=== PATIENT | female | born 1935 | race Caucasian/White ===

== ENCOUNTER 2018-05-11 09:59 | Inpatient (IN) | payer OTHER ==
[~2018-05-11] VITALS: Ht 172.7 cm; Wt 59.0 kg
[~2018-05-11 09:59] MED LIST: ACCU CHECK; ADULT LOW DOSE81 MG PO; ASPIR 8181 MG PO; ASPIRIN EC81 M1 PO; ATIVAN1 MG PO; CEFUROXIME250 MG PO; DEPAKOTE 250MG250 M1 PO; ENSURE CLINICA PO; EXELON1 EAC1 TOP; GEODON IM; GEODON20 MG PO; GLUCOPHAGE XR500 MG PO; GLUCOPHAGE500 MG PO; HUMALOG100 UNIT/1 SQ; HYDRALAZINE 2525 M1 PO; LISINOPRIL10 MG PO; LISINOPRIL5 MG PO; LORAZEPAM 2MG2 MG/M1 IM; MECLIZINE HCL12.5 MG PO; METOPROLOL SUCC25 M1 PO; MOM PO; NAMENDA 5 MG TAB5 M1 PO; NITROSTAT0.4 M1 SL; NOHOMEMEDICATIONS; NUEDEXTA 20-101 EACH PO; OLANZAPINE ODT5 MG PO; OLANZAPINE2.5 MG PO; OLANZAPINE5 MG PO; PAIN & FEVER325 MG PO; REMERON15 M2 PO; Rivastigmine TRANSDERM; SENNA8.6 MG PO; SEROQUEL 12.512.5 MG PO; TYLENOL325 MG PO; ZESTRIL2.5 MG PO; Ziprasidone IM
[2018-05-11 10:04] VITALS: BP 105/85
[2018-05-11 10:26] LABS: ABSOLUTE NEUTROPHILS 11.3 thou/uL (1.4-8.2); BASOPHILS 0.4 % (0.0-2.0); EOSINOPHILS 0.1 % (0.0-3.0); HEMATOCRIT 50.7 % (37.0-47.0); HEMOGLOBIN 16.6 gm/dL (12.0-15.0); LYMPHOCYTES 15.6 % (24.0-44.0); MCH 31.6 pg (26.0-34.0); MCHC 32.7 g/dL (28.0-37.0); MCV 96.8 fL (80.0-100.0); MONOCYTES 5.9 % (1.0-8.0); PLATELET COUNT 151 thou/uL (150-400); RBC 5.24 mil/uL (4.20-5.00); RDW 14.4 % (10.5-14.5); WBC 14.4 thou/uL (4.0-11.0)
[2018-05-11 10:30] LABS: URINE CLARITY CLOUDY; URINE COLOR YELLOW
--- NOTE | 2018-05-11 10:30 | NUR ---
CALL PLACED TO LISETTE EDWARDS @[phone] AND OBTAINED PERMISSION TO TREAT
[2018-05-11 10:31] LABS: URINE BILIRUBIN NEGATIVE (Negative); URINE BLOOD NEGATIVE (Negative); URINE GLUCOSE-RANDOM* NEGATIVE (Negative); URINE KETONES NEGATIVE (Negative); URINE NITRITE-REFLEX NEGATIVE (Negative); URINE PROTEIN (DIPSTICK) NEGATIVE (Negative); URINE SPECIFIC GRAVITY >= 1.030 (1.005-1.035)
[2018-05-11 10:34] LABS: URINE LEUKOCYTES-REFLEX TRACE (Negative); URINE UROBILINOGEN 0.2 E.U./dl (0.2-1.0)
[2018-05-11 10:36] LABS: ANION GAP 13 mmol/L (7-16); BUN 121 mg/dL (7-18); CALCIUM 9.5 mg/dL (8.5-10.1); CHLORIDE 129 mmol/L (98-107); CO2 31 mmol/L (21-32); CREATININE 3.1 mg/dL (0.6-1.0); GLUCOSE 178 mg/dL (74-106); POTASSIUM 4.3 mmol/L (3.5-5.1)
[2018-05-11 10:39] LABS: SODIUM 173 mmol/L (136-145)
[2018-05-11 10:44] LABS: ALBUMIN 4.2 g/dL (3.4-5.0); MAGNESIUM 3.9 mg/dL (1.8-2.4); SGOT 16 U/L (15-37); SGPT 24 U/L (30-65); TOTAL PROTEIN 8.8 g/dL (6.4-8.2); TROPONIN-I <0.06 ng/mL (<0.06)
[2018-05-11 10:51] LABS: AMP/METHAMP Negative (Negative); BARBITURATES Negative (Negative); BENZODIAZEPINES Negative (Negative); COCAINE Negative (Negative); METHADONE Negative (Negative); OPIATES Negative (Negative); PCP Negative (Negative)
[2018-05-11 10:52] LABS: SQUAMOUS >10 Many /LPF (0-3)
[2018-05-11 10:53] LABS: CRYSTALS None Seen /LPF (None Seen); HYALINE CASTS 0-3 Few /LPF (None Seen)
[2018-05-11 10:54] LABS: URINE WBC-REFLEX 6-15 Few /HPF (0-5)
--- NOTE | 2018-05-11 11:21 | NUR ---
LAB HERE TO DRAW BLOOD CULTURES
[2018-05-11] MEDS ORDERED: MIRALAX17 GM PO (11:53)
[2018-05-11] MEDS ORDERED: LASIX 20 MG TAB20 MG PO (11:53)
[2018-05-11] MEDS ORDERED: DEPAKOTE SPRIN125 MG PO (11:54)
[2018-05-11 11:55] LABS: TOTAL BILIRUBIN 0.1 mg/dL (<0.1-1.0)
[2018-05-11 12:24] VITALS: BP 170/56
[2018-05-11 13:15] VITALS: BP 134/68
--- NOTE | 2018-05-11 13:23 | EKG ---
[address] [employer] [place] [address] ELECTROCARDIOGRAM REPORT Name: GREGORYCAROLINE NORMAN Room #: 457-P ADM IN M.R.#: [id number] Admission: 05/11/18 Attend Phys: Estefany Rivera MD Discharge: Date of : 33 Report #: [id number] THIS REPORT FOR: //name// [facility] ED Test Date: 2018-05-11 Test Time: 10:17:57 Pat Name: CAROLINE JENKINS Department: Room: [facility] Gender: F Plasterer Journeyman: TSTKEMAR : 1935 Requested By: Jose J Ash Order Number: [id number] MD: August Gonzalez Measurements Intervals [place] Rate: 103 P: CT: QRS: -53 QRSD: 140 T: -3 QT: 327 QTc: 428 Interpretive Statements Atrial fibrillation RBBB and LAFB Compared to ECG 04/08/2016 18:45:48 Left anterior fascicular block now present Right bundle-branch block now present Sinus rhythm no longer present Supraventricular rhythm no longer present Myocardial infarct finding no longer present Electronically Signed On 05-11-2018 13:22:53 FELT STRIP FINISHER by August Gonzalez [email or web address] <ELECTRONICALLY SIGNED> By: August Gonzalez MD 05/11/18 1322 [id number] August Gonzalez MD /EPI
--- NOTE | 2018-05-11 14:43 | NUR ---
ADM PT CAME IN FROM ER. PT IS CONFUSED, FAMILY AT BEDSIDE. BED ALARM ON. ADM ORDERS CARRIED OUT. WILL CONTINUE TO MONITOR.
[2018-05-11 15:38] VITALS: BP 116/72
[2018-05-11 19:11] VITALS: BP 124/90
--- NOTE | 2018-05-11 22:00 | EKG ---
[address] [place] [address] ELECTROCARDIOGRAM REPORT Name: CAROLINE JENKINS Room #: 457-P ADM IN M.R.#: [id number] Admission: 05/11/18 Attend Phys: Estefany Rivera MD Discharge: Date of : 33 Report #: [id number] THIS REPORT FOR: //name// [facility] ED Test Date: 2018-05-11 Test Time: 11:04:43 Pat Name: CAROLINE JENKINS Department: Room: 457 P Gender: F Spanish Teacher: : 1935 Requested By: Jose J Ash Order Number: [id number] MD: Loyd Ohara Measurements Intervals [place] Rate: 85 P: 66 SD: 120 QRS: 260 QRSD: 118 T: 56 QT: 384 QTc: 457 Interpretive Statements Sinus rhythm left atrial enlargement Nonspecific IVCD with LAD Compared to ECG 05/11/2018 10:17:57 Intraventricular conduction delay now present Atrial fibrillation no longer present Electronically Signed On 05-11-2018 22:00:44 HOSPITALITY DIRECTOR by Loyd Ohara [email or web address] <ELECTRONICALLY SIGNED> By: Loyd Ohara MD 05/11/18 2200 [id number] 1104 Loyd Ohara MD /EPI
--- NOTE | 2018-05-12 02:50 | NUR ---
PT PULLED OUT IV DURING THE NIGHT PT UP MOST OF THE NIGHT FIDGETING WITH HER HANDS NEW IV PUT IN PT DID NOT TRY TO GET UP WITHOUT ASSISTANCE.
[2018-05-12 05:49] LABS: CREATININE 1.9 mg/dL (0.6-1.0); POTASSIUM 3.3 mmol/L (3.5-5.1)
[2018-05-12 07:16] VITALS: BP 128/48
--- NOTE | 2018-05-12 09:43 | NUR ---
CM VISITED WITH PT SON LISETTE AT BEDSIDE. PREFERRS GOING BY [facility]. BEDSIDE NURSE WORKING WITH PT TO START HER IV MEDICATION. NOTED PT ABLE TO FEED HER SELF FINGER FOOD BREAKFAST. INTRO TO CM, TRANSITION OF CARE, POST ACUTE AND LTC. PT HAS DX DEMENTIA " SHE BEEN IN [facility]OCK UNITE AT [place] FOR 6 YEARS. UP TILL THE FALL ON NEW SHE UP WALKING WITH OUT ANY ASSISTED DEVICES, THEN ALSO HAD FALL OUT OF WHEEL CHAIR THE NEXT DAY. SHE HAS ASSISTANCE WITH BATHING, AND MEDICATION AT [place]. THIS IS A NASTY DISEASE"/SON LISETTE. CM PROVIDED ACTIVE LISTENING AND WILL CONT FOLLOWING NEEDED FOR DC NEEDS. " THANK YOU FOR VISIT"/SON. DCP DON[facility] OF [place]
[2018-05-12 15:47] VITALS: BP 137/40
[2018-05-12 20:47] VITALS: BP 143/89
--- NOTE | 2018-05-13 00:30 | NUR ---
Assumed care at 1845. Pt resting in bed. Son is at bedside. Shes AOX1. Left AC with NS @125. No identified needs at the moment. Call light within reach. Will continue to monitor.
[2018-05-13 04:08] VITALS: BP 135/57
[2018-05-13 05:42] LABS: MCH 30.8 pg (26.0-34.0); MCHC 31.8 g/dL (28.0-37.0); MCV 96.8 fL (80.0-100.0); RBC 4.13 mil/uL (4.20-5.00); WBC 12.1 thou/uL (4.0-11.0)
[2018-05-13 05:45] LABS: HEMOGLOBIN 12.7 gm/dL (12.0-15.0)
[2018-05-13 06:02] LABS: CALCIUM 8.4 mg/dL (8.5-10.1); CREATININE 1.2 mg/dL (0.6-1.0); POTASSIUM 4.2 mmol/L (3.5-5.1)
[2018-05-13 08:31] VITALS: BP 133/56
--- NOTE | 2018-05-13 11:20 | NUR ---
Nutrition: requested to see by nursing. Pt admitted for dehydration/hypernatremia. Per nursing, pt eats only small amounts of meals, is doing well with Ensure pudding and would like another supplement option. Will trial Magic cups w/ lunch and dinner. With nutrition interventions in place, consider low risk.
--- NOTE | 2018-05-13 15:36 | NUR ---
Pt vs stable, IV medication and fluids given. Pt is non verbal and requires total assists in all ADL's. Consulted dietary since pt does not eat or drink well. Frequent visits are done to promote food and fluid intake. Son is at bed side and visits in the afternoon.
[2018-05-13 17:59] VITALS: BP 104/44
[2018-05-13 19:33] VITALS: BP 157/75
[2018-05-14 03:51] VITALS: BP 143/51
--- NOTE | 2018-05-14 04:02 | NUR ---
PT UNCOOPERATIVE WITH STAFF PT PULLED OUT IV PT UP MOST OF THE NIGHT FALL PERCAUTIONS IN PLACE.
[2018-05-14 05:29] LABS: CREATININE 1.1 mg/dL (0.6-1.0)
[2018-05-14 05:37] LABS: POTASSIUM 3.2 mmol/L (3.5-5.1)
[2018-05-14 08:00] VITALS: BP 146/61
[2018-05-14 15:00] VITALS: BP 130/56
--- NOTE | 2018-05-14 19:24 | NUR ---
Pt stable, and new diet of soft fiber and magic cups is well tolerated, pt is ot eating most of food. Fluid intake through out the day is promoted. Pt voided twice and and one bowel movement. Pt is turned every 2 hours.
[2018-05-14 19:31] VITALS: BP 92/63
--- NOTE | 2018-05-15 03:17 | NUR ---
PT UP MOST OF THE NIGHT CONSTANTLY PULLING OFF HER TELE PT TURNED Q2 HOURS PT CONFUSED DURING THE NIGHT.
[2018-05-15 05:44] LABS: HEMATOCRIT 35.5 % (37.0-47.0); MCH 31.9 pg (26.0-34.0); MCHC 33.8 g/dL (28.0-37.0); MCV 94.2 fL (80.0-100.0); RBC 3.77 mil/uL (4.20-5.00); RDW 13.4 % (10.5-14.5); WBC 11.1 thou/uL (4.0-11.0)
[2018-05-15 05:57] LABS: ALBUMIN 2.4 g/dL (3.4-5.0); CALCIUM 7.5 mg/dL (8.5-10.1); POTASSIUM 3.5 mmol/L (3.5-5.1)
[2018-05-15 07:28] VITALS: BP 143/62
[2018-05-15 12:09] VITALS: BP 106/47
[2018-05-15 16:17] VITALS: BP 108/53
[2018-05-15 19:19] VITALS: BP 116/54
--- NOTE | 2018-05-15 19:21 | NUR ---
PT STABLE THROUGHOUT SHIFT. PT HAD POOR APPETITE THROUGHOUT SHIFT. FAMILY AT BESIDE, PT RESTING COMFORTABLY.
[2018-05-16 02:26] LABS: URINE BILIRUBIN NEGATIVE (Negative); URINE BLOOD TRACE (Negative); URINE CLARITY CLEAR; URINE COLOR YELLOW; URINE GLUCOSE-RANDOM* NEGATIVE (Negative); URINE KETONES NEGATIVE (Negative); URINE LEUKOCYTES-REFLEX NEGATIVE (Negative); URINE NITRITE-REFLEX NEGATIVE (Negative); URINE PROTEIN (DIPSTICK) NEGATIVE (Negative); URINE SPECIFIC GRAVITY <= 1.005 (1.005-1.035); URINE UROBILINOGEN 0.2 E.U./dl (0.2-1.0)
[2018-05-16 04:07] VITALS: BP 142/51
[2018-05-16 05:35] LABS: HEMATOCRIT 32.8 % (37.0-47.0); HEMOGLOBIN 11.1 gm/dL (12.0-15.0); MCH 31.6 pg (26.0-34.0); MCHC 33.9 g/dL (28.0-37.0); MCV 93.1 fL (80.0-100.0); RBC 3.52 mil/uL (4.20-5.00); RDW 13.1 % (10.5-14.5); WBC 8.6 thou/uL (4.0-11.0)
[2018-05-16 05:43] LABS: CALCIUM 7.8 mg/dL (8.5-10.1); CREATININE 0.9 mg/dL (0.6-1.0); POTASSIUM 3.4 mmol/L (3.5-5.1)
[2018-05-16 08:14] VITALS: BP 110/77
--- NOTE | 2018-05-16 08:21 | NUR ---
PROGRESS PT AWAKE AND ALERT BUT NOT ORIENTED TO SELF TIME OR PLACE. DOES GET COMBATIVE AT TIMES AND OTHER TIMES IS SWEET AND COOPERATIVE. RESTART OF IV WAS DIFFICULT PT WAS HITTING AND FIGHTING. IV PLACE IN LF WRAPPED WITH KOBAN FOR PROTECTION CONTINUE TO MONITOR, INCONTINENT OF BOWELS AND BLADDER LAST NIGHT.
[2018-05-16 17:25] VITALS: BP 106/58
--- NOTE | 2018-05-16 19:27 | NUR ---
PATIENT REMAINED QUITE CONFUSED THROUGH THE DAY. SHE DOES NOT SEEM TO BE IN PAIN AT THIS TIME. RESPIRATIONS ARE NOT LABORED. CONT ON IV FLUID REPLACEMENT. ATE ALL MEALS GREATER THAN 50%. ON CALORIE COUNT. NO PROGRESS TOWARDS DISCHARGE GOALS.
[2018-05-17 03:11] VITALS: BP 80/51
--- NOTE | 2018-05-17 03:14 | NUR ---
PT UP MOST OF THE NIGHT PULLING OUT HER IV AND PULLING AT HER TELE.
[2018-05-17 06:06] LABS: HEMATOCRIT 31.7 % (37.0-47.0); MCH 32.2 pg (26.0-34.0); MCHC 34.5 g/dL (28.0-37.0); MCV 93.2 fL (80.0-100.0); RBC 3.41 mil/uL (4.20-5.00); RDW 13.4 % (10.5-14.5); WBC 9.6 thou/uL (4.0-11.0)
[2018-05-17 06:16] LABS: CALCIUM 7.7 mg/dL (8.5-10.1); CREATININE 0.9 mg/dL (0.6-1.0); MAGNESIUM 1.9 mg/dL (1.8-2.4); POTASSIUM 3.4 mmol/L (3.5-5.1)
[2018-05-17 07:47] VITALS: BP 121/71
--- NOTE | 2018-05-17 13:08 | NUR ---
Nutrition: Day one calorie count shows pt met 68% kcal needs, 83% low end protein needs (1080 kcals, 49 gm protein). Pt consume 100% of 3 ensure puddings this day. Total fluid intake at meals recorded was 12 ounces or 360 mL. Continue calorie count one more day.
--- NOTE | 2018-05-17 15:16 | NUR ---
IT IS ANTIPATED THAT PT WILL RETURN TO [facility] ONCE MEDICALLY STABLE. CM FOLLOWING INDICATED.
[2018-05-17 15:30] VITALS: BP 125/82
--- NOTE | 2018-05-17 17:14 | NUR ---
PT STABLE THROUGHOUT SHIFT. APPETITE MUCH IMPROVED, ATE MAJORITY OF BREAKFAST AND LUNCH. PT WORKED WELL WITH PT, AMBULATED AROUND UNIT. PT HAD SEVERAL BOWEL MOVEMENTS. PT RESTING COMFORTABLY.
[2018-05-17] MEDS ORDERED: DEPAKOTE SPRIN125 MG PO (19:25)
[2018-05-17 19:53] VITALS: BP 131/37
[2018-05-18 03:08] VITALS: BP 131/37
--- NOTE | 2018-05-18 03:23 | NUR ---
PT PULLING AT IV AND IV TUBING THROUGHOUT THE NIGHT PT TURNED Q2 HOURS NO ISSUES OVERNIGHT.
[2018-05-18 05:41] LABS: HEMATOCRIT 34.2 % (37.0-47.0); HEMOGLOBIN 11.4 gm/dL (12.0-15.0); MCH 31.1 pg (26.0-34.0); MCHC 33.3 g/dL (28.0-37.0); MCV 93.5 fL (80.0-100.0); RBC 3.66 mil/uL (4.20-5.00); RDW 13.1 % (10.5-14.5); WBC 7.2 thou/uL (4.0-11.0)
[2018-05-18 05:52] LABS: CREATININE 0.9 mg/dL (0.6-1.0); POTASSIUM 3.7 mmol/L (3.5-5.1)
[2018-05-18] MEDS ORDERED: KLOR-CON 1010 MEQ PO (07:44)
--- NOTE | 2018-05-18 07:58 | D ---
[facility] [place] [address] DISCHARGE SUMMARY Name: CAROLINE JENKINS Room #: 457-P ADM IN M.R.#: [id number] Admission: 05/11/18 Attend Phys: Estefany Rivera MD Discharge: Date of : 33 Report #: [id number] THIS REPORT FOR: //name// CC: Jaun Rivera MD Secured Unit [facility] DATE OF SERVICE: 05/17/2018 ANTICIPATED DATE OF DISCHARGE: 05/18/2018, tomorrow. SUMMARY OF HISTORY AND PHYSICAL: The patient is an 83-year-old female who lives in the secured unit at [facility]. She has advanced dementia with behavior problems, who ordinarily was ambulating independently, able to feed herself, but needed assistance with other activities of daily living. On the morning of admission, the nursing staff reported that her extremities were mottled. In the Emergency Room, she was found to have marked dehydration, sodium of 173, BUN of 121, and was found to have urinary tract infection and leukocytosis. She was admitted for intravenous antibiotics and intravenous fluids. SUMMARY OF HOSPITAL COURSE: She was admitted with serum sodium of 171 and started on D5 half normal saline and intravenous Rocephin for her urinary tract infection. She tolerated this well and slowly became more alert. As the days progressed, she became more alert, and began to walk with physical therapy. On the day before discharge, she walked around the entire mcgrath of the nursing unit with the physical therapist on one side and with her son on the other side. It was recorded as 250 feet. She also ate 100% of her breakfast and lunch, and seemed to be pleased and responsive that her son was here. IMPORTANT LABORATORY DATA: Her serum sodium was 173 on admission and steadily decreased to a normal of 144 the day before discharge. Potassium was normal at 4.3, and varied slightly low at 3.4 and lower limits of normal at 3.5. Chloride was high at 129 and normalized at 107 the day before discharge. Her BUN was 121 on admission, and normalized to 9 the day before discharge. Creatinine was 3.1 on admission and also normalized at 0.9 the day before discharge. Her glucose was high at 178 on admission, and despite receiving 5% dextrose intravenously constant infusion, the morning before discharge her glucose was normal at 96. Magnesium was elevated at 3.9 on admission, and was in the normal range of 1.9 the day before discharge. Total protein was elevated at 8.8 and albumin normal at 4.2 on admission. Several days before discharge, the albumin had dropped to 2.4. EGFR was 14 on admission and 60 the day before discharge. Troponin was negative. Drug screen was negative. [address] [address] DISCHARGE SUMMARY Name: CAROLINE JENKINS Room #: 457-P [facility] IN M.R.#: [id number] Admission: 05/11/18 Attend Phys: Estefany Rivera MD Discharge: Date of : 34 Report #: [id number] On admission, white count was elevated at 14.4, and slowly normalized throughout the hospital stay. She was hemoconcentrated with hemoglobin of 16 on admission, which dropped to 11.0 the day before discharge. There was 78% segmented neutrophils in the admitting differential. Her Depakote Sprinkles was increased from 125 mg at bedtime, 225 mg twice daily and 3 days before discharge valproic acid level was 14 when drawn in the cake tester hours before her morning dose. On admission, her urinalysis showed trace leukocytes, many squamous epithelial cells, 15 wbc's with 30 bacteria. When repeated prior to discharge, urinalysis only showed a trace of blood and was otherwise negative. Urine culture showed less than 10,[address] scan of the head without contrast on admission showed diffuse moderate cerebral atrophy with 3 x 4 cm low density change in the high convexity right parietal region that was unchanged from 07/31/2012 examination and felt to represent a prior stroke. Hyperostosis frontalis interna was noted as well. Chronic encephalomalacia was noted by some low density changes surrounding the ventricles. DISCHARGE DIAGNOSES: 1. Dramatic dehydration with laboratory changes as reviewed in the body of the report above, that normalized with restoring her fluid volume. 2. Suspected urinary tract infection -- completed a course of intravenous Rocephin. 3. Advanced senile dementia with behavior problems. 4. Evidence of previous high right parietal, middle cerebral artery stroke (that did not cause difficulty with her walking). 5. Marked malnutrition. 6. Past medical history of schizophrenia and psychosis. 7. History of admission at [facility] from 06/16/2012 to 07/27/2012 for aggression. 8. Past history of diabetes. PLAN: Laboratory data is to be repeated in the cake tester hours tomorrow and if continued to be stable, then she is to return to see Secure Unit at [facility]. Her Namenda 20 mg a day and furosemide have been discontinued. Her divalproex 125 mg is being increased from just at bedtime to twice daily. She is continuing a baby aspirin daily, nitroglycerin as needed, mirtazapine 7.5 mg at bedtime, senna on a daily basis, MiraLax on a daily basis and 325 mg of acetaminophen as needed. [address] [place] [address] DISCHARGE SUMMARY Name: CAROLINE JENKINS Room #: 457-P ADM IN M.R.#: [id number] Admission: 05/11/18 Attend Phys: Estefany Rivera MD Discharge: Date of : 33 Report #: [id number] On 05/20/2018, she is to have a CBC, CMP, and magnesium level were normal. Potassium 10 meq daily for 2 weeks was added. <ELECTRONICALLY SIGNED> By: Gregory Callahan MD 05/18/18 [phone] Gregory Callahan MD /nt
[2018-05-18 09:07] VITALS: BP 100/76
--- NOTE | 2018-05-18 10:32 | NUR ---
PATIENT TO DC TODAY AND GO TO [facility] SKILLED SECURED MEMORY UNIT. DP ORDERED CC, DP SENT DC PAPERWORK FOR CC TO 4W, ALSO SENT DC PAPERWORK TO [facility], ANTONIETTA CONTACTED ARTHUR AT FACILITY WHO SET UP PICKUP STRETCHER VAN 1300 TO 1330 TODAY. DP NOTIFIED UNIT OF TIME AND CALLED PATIENT'S SON LISETTE TO LET HIM KNOW.
--- NOTE | 2018-05-18 13:59 | NUR ---
PT STABLE THROUGHOUT SHIFT. PT TRANSFERRED BACK TO [facility], LEFT UNIT VIA STRETCHER VAN. REPORT CALLED TO LATOYA.
== END 2018-05-18 13:45 | DRG 689 ==
LOC: ER 09:59 → EROBS 11:56 → 4W 11:56
PROVIDERS: Emergency Medicine; Internal Medicine; ADMIT Internal Medicine
DX: N39.0 Urinary tract infection, site not specified (principal); N17.0 Acute kidney failure with tubular necrosis; E87.0 Hyperosmolality and hypernatremia; F02.81 Dementia in other diseases classified elsewhere, unspecified severity, with behavioral disturbance; E46 Unspecified protein-calorie malnutrition; Z68.1 Body mass index [BMI] 19.9 or less, adult; F20.9 Schizophrenia, unspecified; G30.9 Alzheimer's disease, unspecified; E86.0 Dehydration; E83.41 Hypermagnesemia; I10 Essential (primary) hypertension; E11.9 Type 2 diabetes mellitus without complications; Z86.73 Personal history of transient ischemic attack (TIA), and cerebral infarction without residual deficits; Z79.82 Long term (current) use of aspirin; Z79.899 Other long term (current) drug therapy; Z88.2 Allergy status to sulfonamides
CPT/HCPCS: 10045; 10047